=== PATIENT | male | born 1995 | race African-American/Black ===

== ENCOUNTER 2022-07-26 02:45 | Emergency (ER) | payer SELFPAY ==
[~2022-07-26] VITALS: Ht 167.6 cm; Wt 64.0 kg
[2022-07-26 04:00] VITALS: BP 116/74
== END 2022-07-26 04:00 | disposition home or self-care (01) ==
LOC: ER 02:45
DX: F16.229 Hallucinogen dependence with intoxication, unspecified (principal)
CPT/HCPCS: 99283